=== PATIENT | female | born 2000 | race Hispanic/Latino ===

== ENCOUNTER → 2019-03-28 | Outpatient (CLI) | payer OTHER ==
[~2019-03-28] MED LIST: IOHEXOL-350 50ML VIAL IV ONE
== END | disposition home or self-care (01) ==
LOC: RAH 13:00
PROVIDERS: ATTEND Family Medicine
DX: G43.909 Migraine, unspecified, not intractable, without status migrainosus (principal)
CPT/HCPCS: 70470; Q9967